=== PATIENT | female | born 1995 | race Caucasian/White ===

== ENCOUNTER 2020-10-23 15:00 | Inpatient (IN) | payer MEDICAID, SELFPAY ==
[2020-10-23] VITALS (32 sets, daily range): BP systolic 117–142; BP diastolic 69–94; PULSE 73–96; RESP 16–18; TEMP 36.1–37.2; O2SAT 99–100; BMI 24.3
[2020-10-23] MEDS: ampicillin 2,000 MG in sodium chloride 0.9% (plus) 50 ML 100 MG IV (16:11)
[2020-10-23] MEDS: dextrose 5%-lactated ringers 1,000 ML 125 ML IV (16:13)
[2020-10-23] MEDS: miSOPROStol 100 mcg tablet 25 MCG SUBLINGUAL ×2 (16:14→20:22)
[2020-10-23 16:43] LABS: Basophils % 0.3 %; Eosinophils # 0.1 10^3/uL (0.0-0.8); Eosinophils % 1.3 %; Hematocrit 33.5 % (37.0-47.0); Hemoglobin 10.8 g/dL (11.5-15.3); Lymphocytes # 1.8 10^3/uL (0.8-4.8); Lymphocytes % 19.8 %; Mean Corpuscular HGB Conc 32.2 g/dL (30.0-36.0); Mean Corpuscular Hemoglobin 30.6 pg (28.0-34.0); Mean Corpuscular Volume 94.9 fl (81-99); Mean Platelet Volume 11.5 fL (7.4-10.4); Monocytes # 0.7 10^3/uL (0.2-0.9); Monocytes % 7.8 %; Neutrophils # 6.28 10^3/uL (1.8-7.7); Nucleated Red Blood Cells % 0 %; Platelet Count 165 10^3/cmm (130-400); Red Blood Count 3.53 10^6/uL (4.1-5.3); Red Cell Distribution Width 13.5 % (12.1-15.1)
--- NOTE | 2020-10-23 17:26 | PC.NURSE ---
HPV detected per labs
[2020-10-23] MEDS: ampicillin 1,000 MG in sodium chloride 0.9% (plus) 50 ML 100 MG IV ×2 (20:11→23:55)
[2020-10-23] MEDS: fentaNYL 50 mcg/mL INJ 2mL IVP (23:39)
[2020-10-23] MEDS: lactated ringers 1,000 ML 999 ML IV (23:55)
[2020-10-24] VITALS (78 sets, daily range): BP systolic 102–148; BP diastolic 61–96; PULSE 67–100; RESP 14–22; TEMP 36.2–36.9; O2SAT 93–100
--- NOTE | 2020-10-24 01:05 | ANES.PREANE2 ---
Pre-Anesthetic Assessment Pre-Anesthetic Assessment: Height/Weight: Height 1.6 m Weight 62.142 kg Temp Pulse Resp BP Pulse Ox 97.0 F L 97 18 144/69 99 10/23/20 21:54 10/24/20 01:00 10/23/20 23:39 10/24/20 00:30 10/24/20 01:00 Preop Diagnosis: labor pain Proposed Procedure: epidural Was Beta Cait taken within 24 hours: N/A Was Clonidine taken within 24 hours: N/A Social: Social History: No alcohol and No tobacco Exam: Pre-Anes Outpt Exam: alert, oriented x 3, clear to auscultation bilaterally and regular rate & rhythm Airway: Submandibular: WNL Cervical ROM: WNL MP: 2 Dentition: Full Pulmonary: Pulmonary: None reported CV/HEM: CV/HEM: None reported : : None reported Hepatic: Hepatic: None reported GI: GI: None reported Metabolic: Metabolic: None reported Musc/skel: Musc/skel: None reported Neuropsych: Neuropsych: None reported Anesthetic Plan: ASA status: 2 Anesthesia: Regional (specify below) Risk of > 500 ml blood loss (7ml/kg in children): No Meds/Allergies Current Medications: Current Medications Generic Name Dose Route Start Last Admin Trade Name Freq PRN Reason Stop Dose Admin Fentanyl 25 - 100 mcg 10/23/20 15:33 10/23/20 23:39 Fentanyl 50 Mcg/ Ml Inj 2ml IVP 25 mcg Q1H PRN Administration SEVERE PAIN Dextrose/Lactated Ringer's 1,000 mls @ 125 m ls/hr 10/23/20 15:45 10/23/20 16:13 Dextrose 5%-Lact ated Ringers IV 125 mls/hr .Q8H ALFONSO Administration Ampicillin Sodium 1,000 mg/ 50 mls @ 100 mls/ hr 10/23/20 19:45 10/23/20 23:55 Sodium Chloride IV 100 mls/hr Q4H ALFONSO Administration Protocol Lactated Ringer's 1,000 mls @ 999 m ls/hr 10/23/20 22:13 10/23/20 23:55 Lactated Ringers IV 999 mls/hr .Q1H1M PRN Administration See label comment s PFSH Anesthesia Female Reproductive History: : 5 Data Anesthesia CBC & Chem 7: 10/23/20 16:02 Other Labs: Laboratory Results - last 48 hr 10/23/20 16:02 WBC 9.0 RBC 3.53 L Hgb 10.8 L Hct 33.5 L MCV 94.9 MCH 30.6 MCHC 32.2 RDW 13.5 Plt Count 165 MPV 11.5 H Neut % (Auto) 70.0 Lymph % (Auto) 19.8 [place] % (Auto) 7.8 Eos % (Auto) 1.3 Baso % (Auto) 0.3 Neut # (Auto) 6.28 Lymph # (Auto) 1.8 [place] # (Auto) 0.7 Eos # (Auto) 0.1 Baso # (Auto) 0.0 Nucleated RBC % (auto) 0 Nucleated RBCs # 0.0 Cardiac Studies: No Data to Display
--- NOTE | 2020-10-24 01:34 | P.ANES_ITS ---
Anesthesia Procedures Procedure/Date: 10/24/20 epidural Procedure Narrative: epidural complete, bolus given, epidural pump initiated with AIRCRAFT ELECTRICAL SYSTEMS SPECIALIST education given, vitals taken during procedure using OBIX system and satisfactory throughout, patient admits to decrease pain, report of procedure to OB RN Epidural: Time Out Performed: Yes Consents Signed: Procedure Consent Consent: requested by attending/covering physician, from patient, risks and benefits reviewed and patient agrees to proceed Lumbar Level: L3-L4 Epidural position: sitting Epidural procedure: sterile prep of area, 1% lidocaine to numb the area (3 mL), 18 g needle, negative for paresthesia passed, neg for paresthesia, test dose given, 1.5% xylocaine 1:200k epi (5 mL), 0.2% Ropivacaine bolus ml (5 mL), placed PCEA, no systemic response, sterile dressing applied, L.U.D. no apparent complications and 0.2% Ropiavacaine @ mls/hr (13 mL/hr)
[2020-10-24] MEDS: ampicillin 1,000 MG in sodium chloride 0.9% (plus) 50 ML 100 MG IV (04:57)
[2020-10-24] MEDS: dextrose 5%-lactated ringers 1,000 ML 125 ML IV (04:58)
--- NOTE | 2020-10-24 07:05 | PM.OPHPUD ---
Labor & Delivery H&P Update Date of Procedure: October 24, 2020 Date H&P Performed: 10/22/20 H&P update information: I have reviewed H&P completed within last 30 days, I have examined patient prior to procedure and Changes to prior documentation as noted here Changes to previous documentation: The patient has grossly ruptured membranes Admission Diagnosis: Preop diagnosis: Spontaneous rupture of membranes
[2020-10-24] MEDS: oxytocin 30 UNIT/500 ML BAG 600 UNIT IV (07:26)
--- NOTE | 2020-10-24 07:35 | P.PCNOB_ITS ---
Delivery Note: Date of delivery: October 24, 2020 Pre-delivery diagnoses: 5 para 2-0-2-2 female at 39 weeks estimated gestational age who presented to the hospital with spontaneous rupture membranes Post-delivery diagnoses: Status post spontaneous vaginal delivery Procedure: Spontaneous vaginal delivery Op report anesthesia: Epidural Estimated blood loss (mL): 30 Pre-Delivery Course: The patient presented to the hospital complaining of spontaneous rupture of membranes. Initially she was noted to be nitrazine negative, but she was found to be grossly ruptured. She was placed on Cytotec 25 mcg x 2 an epidural was placed. She was placed on group B strep protocol due to her GBS positive status and received doses of ampicillin every 4 hours throughout her labor process. She progressed to complete without difficulty. Her membranes ruptured approximately 20 hours prior to delivery Her course was also unremarkable. Her line labs were largely unremarkable with exception of having O+ blood and being GBS positive. Delivery: DELIVERY: The patient progressed to complete without difficulty. She delivered a female with a weight of 6 pounds 14 ounces with Apgars of 9, 10. The baby was delivered from the OP position and placed on the mother's abdomen. The mouth and nose were suctioned shortly thereafter. The cord was then clamped and cut 1 minute after delivery. There was no nuchal cord. There was no meconium. The placenta and 3 vessel cord were delivered intact shortly thereafter. The perineum and vaginal vault were carefully examined. No lacerations were noted. Both the mother and the baby were in stable condition. Post-Delivery Status: Good A&P Assessment and plan (1) 39 weeks gestation of : Status: Acute (2) Spontaneous rupture of membranes: Status: Acute (3) Spontaneous vaginal delivery: Status: Acute Coding Level of Care Code Acute Casino Shift Manager for Chg Fwd Diagnoses 39 weeks gestation of Z3A.39 Spontaneous rupture of membranes Spontaneous vaginal delivery O80
--- NOTE | 2020-10-24 07:47 | PM.OBGYHP ---
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 The patient had an unremarkable and an unremarkable vaginal delivery. Earlier in her , she expressed a desire for permanent sterilization. We discussed the risks of a tubal ligation and the alternatives. We discussed the risks of bleeding, infection, and damage intra-abdominal organs. We also discussed the possibility of getting again after a successful tubal ligation. She had no further questions and wished to proceed. This morning we once again touched on those risks and she and her partner have no further questions. Present Details : 5 Para: 2 Labs Rubella: Immune RPR: Negative GBS: Positive Review of Systems General: Reports: 10 or more systems reviewed and unremarkable except in HPI and below Const: Reports: fatigue; Denies: fever(s) Eyes: Denies: change in vision Card: Denies: chest pain Musc: Reports: back pain Chucky/Lymph: Denies: easy bruising Medications/Allergies Allergies Allergy/AdvReac Type Severity Reaction Status Date / Time No Known Allergies Allergy Verified 10/23/20 16:08 Vitals/I&O/Wt Last Vital Signs Temp 97.5 F L 10/24/20 07:04 Pulse 88 10/24/20 07:32 Resp 18 10/24/20 05:00 BP 127/77 10/24/20 07:32 Pulse Ox 96 10/24/20 01:46 10/23/20 10/24/20 10/24/20 22:59 06:59 14:59 Intake Total 50 / 50 1050 / 1100 Output Total 600 / 600 Balance 50 / 50 1050 / 1100 -600 / -600 Weight last 48 hrs Weight 137 lb Physical Exam Narrative: EXAM NARRATIVE: The fundus of the uterus is firm and below the umbilicus. Const: COMMON NORMALS: patient oriented x3 and alert HENMT: COMMON NORMALS: moist oral mucous membranes HEAD & SCALP: normal to inspection Chest: COMMONS NORMALS: normal inspection of the chest Resp: COMMON NORMALS: clear to auscultation bilaterally AUSCULTATION: clear to auscultation bilaterally Cardio: COMMON NORMALS: regular rate and regular rhythm RATE: regular rate RHYTHM: regular rhythm GI: INSPECTION: Yes normal to inspection and Yes other (Gravid) Extremity: COMMON NORMALS: normal to inspection GENERAL: Yes edema (Trace) Neuro: COMMON NORMALS: patient oriented x3, moves all extremities and no sensory deficits noted SENSORIUM/ORIENTATION: Yes alert Psych: COMMON NORMALS: mental status grossly normal Skin: COMMON NORMALS: no rashes or lesions noted GENERAL SKIN EXAM: no rashes or lesions noted Urinary Catheter Management^: Lewis: Cath Placed During This Visit: yes, but has since been removed by the nurse Reason for Continuing Indwelling Catheter: Decision to DC Catheter Urinary Catheter Date of Insertion: 10/24/20 Urinary Catheter Time of Insertion: 01:40 Date Urinary Catheter Removed: 10/24/20 Time Urinary Catheter Discontinued: 07:00 Data : 10/23/20 16:02 A&P Assessment and plan (1) Spontaneous vaginal delivery: Status: Acute (2) 39 weeks gestation of : Status: Acute (3) Sterilization: We will proceed with a tubal ligation per the request of the patient. We are in the process of scheduling the procedure at this time. Status: Acute Attestations Medical Necessity Statement*: Routine post vaginal delivery and post tubal care. I anticipate she will be discharged home tomorrow Coding Level of Care Code Acute Stencil Cutter Machine for Chg Fwd Diagnoses Spontaneous vaginal delivery O80 39 weeks gestation of Z3A.39 Sterilization Z30.2
--- NOTE | 2020-10-24 08:34 | ANE.PACU2 ---
Inpatient post-anesthesia follow up: Airway intact: Yes Vital signs: Temperature 97.2 F Pulse Rate 67 Respiratory Rate 18 Blood Pressure 130/86 Pulse Oximetry 96 Oxygen Delivery Me thod Room Air Oxygen Flow Rate Fraction of Inspir ed Oxygen Hydration adequate: Yes Nausea and vomiting: No Pain level: 2 Mental status: Baseline
[2020-10-24 21:12] LABS: Hematocrit 35.1 % (37.0-47.0); Hemoglobin 11.5 g/dL (11.5-15.3); Mean Corpuscular HGB Conc 32.8 g/dL (30.0-36.0); Mean Corpuscular Hemoglobin 30.8 pg (28.0-34.0); Mean Corpuscular Volume 94.1 fl (81-99); Mean Platelet Volume 11.8 fL (7.4-10.4); Platelet Count 166 10^3/cmm (130-400); Red Blood Count 3.73 10^6/uL (4.1-5.3); Red Cell Distribution Width 13.2 % (12.1-15.1); White Blood Count 15.2 10^3/uL (4.0-10.0)
[2020-10-25] VITALS (13 sets, daily range): BP systolic 124–178; BP diastolic 78–107; PULSE 50–71; RESP 16–19; TEMP 36.2–36.8; O2SAT 97–100
--- NOTE | 2020-10-25 06:30 | PC.NURSE ---
Pt taken to surgery at this time for tubal
[2020-10-25] MEDS: sodium chloride 0.9% 1,000 ML 30 ML IV (06:45)
--- NOTE | 2020-10-25 06:52 | ANES.PREANE2 ---
Pre-Anesthetic Assessment Pre-Anesthetic Assessment: Height/Weight: Height 1.6 m Weight 62.142 kg Temp Pulse Resp BP Pulse Ox 98.3 F 66 18 127/91 98 10/25/20 06:23 10/25/20 06:23 10/25/20 06:23 10/25/20 06:23 10/25/20 06:23 Preop Diagnosis: female desiring sterilization Proposed Procedure: Operation Date: 10/25/20 07:00 Proposed Procedures p Bilateral Tubal Ligation(Not Applicable) - Abelardo Krause MD Was Beta Cait taken within 24 hours: N/A Was Clonidine taken within 24 hours: N/A Social: Social History: No alcohol and No tobacco Exam: Pre-Anes Outpt Exam: alert, oriented x 3, clear to auscultation bilaterally and regular rate & rhythm Airway: Submandibular: WNL Cervical ROM: WNL MP: 2 Dentition: Full History/ROS: No significant history except as noted Anesthetic Plan: ASA status: 2 Anesthesia: General Risk of > 500 ml blood loss (7ml/kg in children): No Meds/Allergies Current Medications: Current Medications Generic Name Dose Route Start Last Admin Trade Name Freq PRN Reason Stop Dose Admin Docusate Sodium 100 mg 10/24/20 09:00 10/24/20 17:21 Docusate Sodium 100 Mg Capsule PO Not Given BID ALFONSO Sodium Chloride 1,000 mls @ 30 ml s/hr 10/25/20 06:45 10/25/20 06:45 Sodium Chloride 0.9% IV 10/26/20 06:44 30 mls/hr .Q24H ALFONSO Administration Ibuprofen 800 mg 10/24/20 09:00 10/24/20 21:00 Ibuprofen 800 Mg Tablet PO Not Given TID ALFONSO Multivit/ Folic Acid/Iron 1 cap 10/24/20 09:00 10/24/20 16:20 Vitamin Capsule PO Not Given DAILY ALFONSO PFSH Anesthesia Female Reproductive History: : 5 Data Anesthesia CBC & Chem 7: 10/24/20 19:56 Other Labs: Laboratory Results - last 48 hr 10/23/20 10/24/20 16:02 19:56 WBC 9.0 15.2 H RBC 3.53 L 3.73 L Hgb 10.8 L 11.5 Hct 33.5 L 35.1 L MCV 94.9 94.1 MCH 30.6 30.8 MCHC 32.2 32.8 RDW 13.5 13.2 Plt Count 165 166 MPV 11.5 H 11.8 H Neut % (Auto) 70.0 Lymph % (Auto) 19.8 [place] % (Auto) 7.8 Eos % (Auto) 1.3 Baso % (Auto) 0.3 Neut # (Auto) 6.28 Lymph # (Auto) 1.8 [place] # (Auto) 0.7 Eos # (Auto) 0.1 Baso # (Auto) 0.0 Nucleated RBC % (auto) 0 Nucleated RBCs # 0.0 Cardiac Studies: No Data to Display
--- NOTE | 2020-10-25 07:36 | P.OP_ITS ---
Operative Report Date of procedure: October 25, 2020 Pre-op Diagnosis: female desiring sterilization Post-op diagnosis: same Post-op Findings: Same Procedure Done: minilaparotomy bilateral tubal ligation using a modified Jensen technique Specimens removed/disposition: Bilateral fallopian tube segments with the right segment being tagged Pathology: other (Bilateral fallopian tube segments with the right segment being tagged) Surgeon: Abelardo Krause Anesthesia: General Estimated blood loss (mL): 5 Complications: None Condition: stable Disposition: floor (OB floor) Brief History: Refer to history and physical Procedure: The patient was brought back to the operating room where anesthesia was found to be adequate. 10 mL of 0.5% bupivacaine was then used to pre- anesthetize the area just inferior to the umbilicus. A #15 blade was then used to make a 3 cm transverse incision just inferior to the umbilicus. I then dissected down to the underlying subcutaneous tissue until arriving at the fascia. The fascia was then nicked with the scalpel. The fascial incision was extended manually. I identified the fundus of the uterus and followed it to the left fallopian tube. The fallopian tube was then followed to the fimbria. The tube was then ligated, cut, and cauterized in a modified Jensen fashion using 0 chromic. The right fallopian tube was then identified and followed through to the fimbria. It was ligated, cut, and cauterized in similar fashion. The right fallopian tube was tagged. Both fallopian tubes had excellent hemostasis. The fascia was reapproximated using 0 Vicryl in running stitch. The sub cutaneous tissue was carefully examined and no further bleeding was noted. The skin was then reapproximated using 4-0 Vicryl in a running subcuticular stitch. A sterile dressing was placed. All counts were correct x2. The patient was moved to the recovery room in stable condition. Associated Problem List Diagnoses (1) Sterilization: (2) Spontaneous vaginal delivery:
[2020-10-25] MEDS: fentaNYL 50 mcg/mL INJ 2mL IVP (07:50)
[2020-10-25] MEDS: HYDROcodone-acetaminophen 5-325 mg Tablet PO (08:28)
--- NOTE | 2020-10-25 08:41 | PC.NURSE ---
0812 Patient returned from PACU at this time.
[2020-10-25] MEDS: prenatal vitamin Capsule 1 CAP PO (11:10)
[2020-10-25] MEDS: docusate sodium 100 mg Capsule PO (11:10)
[2020-10-25] MEDS: ibuprofen 800 mg tablet PO (11:10)
--- NOTE | 2020-10-25 13:55 | ANE.PACU2 ---
Inpatient post-anesthesia follow up: Airway intact: Yes Vital signs: Temperature 98.2 F Pulse Rate 67 Respiratory Rate 18 Blood Pressure 130/88 Pulse Oximetry 100 Oxygen Delivery Me thod Room Air Oxygen Flow Rate Fraction of Inspir ed Oxygen Hydration adequate: Yes Nausea and vomiting: No Pain level: 2 Mental status: Baseline
--- NOTE | 2020-11-05 06:39 | PM.OBGYDC ---
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 Her labor was augmented with Cytotec 25 mcg x 2. She progressed to complete and had an unremarkable delivery of a healthy-appearing female . The patient desired sterilization. On the subsequent day she had a bilateral tubal ligation performed. Her course was unremarkable otherwise. Her bleeding was well controlled. Her pain was well controlled. There were no concerns. Information Peripartum Data: Infant Delivery Method: Vaginal Physical Exam Narrative: EXAM NARRATIVE: She is in no acute distress Lungs are clear auscultation bilaterally Her heart has a regular rate and rhythm Her fundus is below the umbilicus and firm Her dressing is clean, dry and intact Her extremities have trace edema Urinary Catheter Management^: Lewis: Cath Placed During This Visit: yes, but has since been removed by the nurse Reason for Continuing Indwelling Catheter: Decision to DC Catheter Urinary Catheter Date of Insertion: 10/24/20 Urinary Catheter Time of Insertion: 01:40 Date Urinary Catheter Removed: 10/24/20 Time Urinary Catheter Discontinued: 07:00 Discharge Data Data Completed and Pending: Completed Studies During Hospitalization Category Date Time Status Pathology: Surgic al [PTH] Routine Pth 10/25/20 07:27 Completed Addt'l Data from Hospital Stay: Her hemoglobin on admission was 10.8. Her hemoglobin prior to discharge was 11.5. Vitals: Last Vital Signs Temp 98.2 F 10/25/20 13:00 Pulse 67 10/25/20 13:00 Resp 18 10/25/20 13:00 BP 130/88 10/25/20 13:00 Pulse Ox 100 10/25/20 10:15 Discharge Plan Discharge Patient Disposition: Home Condition: Stable Prescriptions: New ibuprofen 800 mg Tablet 800 mg PO TID Qty: 45 RF: 0 hydrocodone-acetaminophen 5-325 mg Tablet 1 - 2 tab PO Q6H PRN (Reason: Moderate To Severe Pain) Qty: 10 RF: 0 Discharge Orders: Discharge Order (Routine); Ordered 10/25/20 Ordered By: Abelardo Krause Referrals: Abelardo Krause MD [Physician] - 11/02/20 8:45 am (Your 4-7 day incision check appointment has been scheduled for 11/02/20 at 8:45 am. 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
== END 2020-10-25 13:12 | disposition home or self-care (01) | DRG 798 ==
PROVIDERS: Admitting Provider Family Medicine; PCP Family Medicine; Visit Provider Family Medicine
PROC: (CPT 58605; principal; 2020-10-25 07:00)
DX: O42.92 Full-term premature rupture of membranes, unspecified as to length of time between rupture and onset of labor (principal); Z37.0 Single live birth; O99.824 Streptococcus B carrier state complicating childbirth; Z3A.39 39 weeks gestation of pregnancy; Z30.2 Encounter for sterilization
CPT/HCPCS: 12345; 36415; 51702; 59025; 59409; 83986; 85025; 85027; 88302; 99211; J0290; J1100; J2405; J2704; J2710; J2795; J3010; J3490; J7030

== ENCOUNTER → 2023-01-15 10:45 | Outpatient (BNVA) | payer MEDICAID, SELFPAY | PROVIDERS: PCP Family Medicine; Visit Provider Nurse Practitioner | DX: Z12.4 Encounter for screening for malignant neoplasm of cervix (principal); N89.8 Other specified noninflammatory disorders of vagina | CPT/HCPCS: 87070; 87205; 87491; 87591; 88175 ==

== ENCOUNTER 2023-06-08 12:03 | Emergency (ER) | payer MEDICAID, SELFPAY ==
[2023-06-08 12:08] VITALS: BP 150/91; PULSE 100; RESP 18; TEMP 36.8; O2SAT 98; BMI 22.8
--- NOTE | 2023-06-08 12:16 | XR_ITS ---
WS: [id number] XR ankle RT min 3V* [id number] REASON FOR EXAM: trauma/pain FINDINGS: Spiral supra syndesmotic, syndesmotic fracture of the distal right fibula. There is no significant fracture fragment displacement. The joint spaces of the right ankle are intact and relatively well preserved. XR/XR ankle RT min 3V* [id number] IMPRESSION: Right ankle fracture as above.
--- NOTE | 2023-06-08 12:16 | ED_ITS ---
HPI - Extremity Problem General: Chief complaint: Extremity Injury, Lower Stated complaint: R ankle injury Time Seen by Provider: 06/08/23 12:16 History of Present Illness: 27-year-old female presents emergency de partment stating that she was playing with her child when she jumped and landed abnormally on her right foot and ankle causing it to invert. She states that she did this 2 days ago and has had significant swelling and pain to the outside of the right ankle. She states her pain is a 8 out of 10 if she attempts to walk on it. She denies additional numbness or tingling or injury. Review of Systems General: Reports: 10 or more systems reviewed and unremarkable except in HPI and below Musc: Reports: extremity pain and extremity swelling [facility] ED PFSH: Medical History (Updated 06/08/23 @ 13:20 by Victor Manuel Whitney MD) Anxiety with depression Surgical History Hx of dilation and curettage Hx of tubal ligation Family History Father Hypertension Other Cancer Denies family history of Diabetes Stroke Social History Smoking and tobacco/nicotine status: current every day tobacco/nicotine user Second hand smoke exposure: No Alcohol intake: unknown Substance/Drug Use: unknown Adopted: No Caregiver/support person: No Lives independently: Yes Household members: children and friend(s) Housing: House Marital status: Legally Number of children: 3 Highest education level completed: 9th Grade service: No Current occupational status: employed Current occupation: [employer] Physical Exam Narrative: EXAM NARRATIVE: General: Alert, no acute distress. Skin: Warm, dry, Intact. Head: Normocephalic, atraumatic. Neck: Supple, trachea midline. Eye: Extraocular movements are intact. PERRLA Ears, nose, mouth and throat: mucosa moist. Cardiovascular: Regular, Normal peripheral perfusion. Respiratory: Lungs are clear to auscultation, respirations are non-labored, breath sounds are equal, Symmetrical chest wall expansion. Gastrointestinal: Soft, Nontender, Non distended, Normal bowel sounds. Musculoskeletal: Normal ROM, right lateral lower leg tender to palpation, increased pain with inversion or eversion of the right ankle. Tender to palpation. 2+ pulses to all extremities, she moves all extremities well she has sensation in all extremities. Neurological: Alert and oriented, No focal neurological deficit observed. Psychiatric: Cooperative, appropriate mood & affect. Course Vital Signs: Vital signs: Vital Signs Temperature 98.2 F 06/08/23 12:08 Pulse Rate 99 06/08/23 12:24 Respiratory Rate 17 06/08/23 12:24 Blood Pressure 164/112 06/08/23 12:24 Pulse Oximetry 98 06/08/23 12:24 Oxygen Delivery Me thod Room Air 06/08/23 12:24 MDM - Extremity (Nontraumatic) Medical Decision Making Physical exam completed and documented. I did obtain a radiographic examination that did show a distal fibular fracture. I did provide the patient p.o. pain medication as well as splint as documented. I have provided her discharge instructions and written prescription for pain medication and follow-up instructions for orthopedics to have additional evaluation and treatment. I reviewed the radiographic examination and determined the need for fracture stabilization via splint. A right posterior long leg splint was utilized. The splint was ordered and placed by the nursing staff, under the direct supervision of myself (ER Physician. The patient's neurovascular status was evaluated and was intact before and after the application of the splint. Capillary refill was less than 3 seconds before and after the application. The patient was splinted and the most appropriate anatomical and functional position at that time. Anticipatory guidance, return precautions and red flag precautions were provided to the patient and support person. The patient/support person was advised to contact the patient's primary care provider or Orthopedic provider to make a follow-up appointment for additional evaluation and treatment within the next 3-5 days. Medical Records I reviewed the patient's medical records. Lab Data Radiology Impressions Ankle X-Ray 06/08/23 12:16 IMPRESSION: Right ankle fracture as above. All radiology interpretation(s) finalized by discharge Discharge Plan Discharge Patient Disposition: Home Clinical Impression: Ankle fracture Qualifiers: Encounter type: initial encounter Fracture type: closed Laterality: right Qualified Code(s): S82.891A - Other fracture of right lower leg, initial encounter for closed fracture Fracture, fibula Qualifiers: Encounter type: initial encounter Fibula location: distal Fracture type: closed Fracture morphology: unspecified fracture morphology Laterality: right Qualified Code(s): S82.831A - Other fracture of upper and lower end of right fibula, initial encounter for closed fracture Condition: Stable Prescriptions: New hydrocodone-acetaminophen 5-325 mg tablet 1 tab PO Q8H PRN (Reason: pain) Qty: 21 0RF naproxen 500 mg tablet 500 mg PO Q12H PRN (Reason: pain) Qty: 20 0RF Discharge Orders: Discharge ED (Routine); Ordered 06/08/23 Ordered By: Victor Manuel Whitney Referrals: Osman Gaspar DO [Physician] - Lissy Canales MD [Primary Care Provider] - Discharge Diet: Usual diet Discharge Activity: Limit activity as instructed Patient Instructions: Opioid Safety, Pain Management Activity Restrictions/Additional Instructions: Activity Restrictions/Additional Instructions: Thank you for choosing [facility] for your healthcare needs today. Please realize that you were seen in the Emergency Department and that we are providing you with an emergency medical screening exam and this may not be a complete and all inclusive of all the testing and or medical work-up that you may need to determine your ailment or severity of your illness. It is very important that you follow-up as instructed with your Primary care provider or Specialist for additional evaluation and to discuss your medical treatment plan. You may return to the Emergency Department should you have concerns or if your condition changes or worsens in any way. Coding Level of Care Code ED Button Attaching Machine Operator for Lauren Gonzalez
[2023-06-08 12:24] VITALS: BP 164/112; PULSE 99; RESP 17; O2SAT 98
[2023-06-08] MEDS: HYDROcodone-acetaminophen 10-325 mg Tablet 1 TAB PO (12:59)
--- NOTE | 2023-06-08 13:00 | PC.PHAR ---
pt states she takes no prescription or otc medications-pt states not taken lexapro 5mg daily last filled 01/15/23 30d/s or effexor er 37.5mg daily filled 10/06/22 30d/s states not taken for months
== END 2023-06-08 13:46 | disposition home or self-care (01) ==
PROVIDERS: Emergency Provider Internal Medicine; PCP Family Medicine
DX: S82.831A Other fracture of upper and lower end of right fibula, initial encounter for closed fracture (principal); X50.1XXA Overexertion from prolonged static or awkward postures, initial encounter
CPT/HCPCS: 29505; 73610; 99283; E0114

== ENCOUNTER → 2023-06-16 16:01 | Outpatient (BNVA) | payer MEDICAID, SELFPAY | PROVIDERS: PCP Family Medicine; Visit Provider Orthopaedic Surgery | DX: M25.571 Pain in right ankle and joints of right foot | CPT/HCPCS: 73610 ==

== ENCOUNTER 2023-06-19 06:01 | Day surgery (SDC) | payer MEDICAID, SELFPAY ==
[2023-06-19] VITALS (10 sets, daily range): BP systolic 120–191; BP diastolic 75–128; PULSE 70–102; RESP 14–20; TEMP 36.1–36.4; O2SAT 94–100; BMI 23.0
--- NOTE | 2023-06-19 | XR_ITS ---
WS: [id number] INTRAOPERATIVE TECHNIQUE: 2 Spot fluoroscopic images for intraoperative purposes. FLUOROSCOPY TIME: 1 minute 41 seconds DLP: 2.27 mgy/cm CLINICAL INFORMATION: ZINA PICS COMPARISON: None. FINDINGS: Intraoperative changes plate and screw fixation distal fibula shaft and lateral malleolus. XR/XR tibia fibula RT 2V [id number] IMPRESSION: Images obtained for intraoperative purposes.
[2023-06-19] MEDS: acetaminophen 1,000 MG/100 ML PIGGYBACK 400 MG IV (06:30)
[2023-06-19] MEDS: gabapentin 300 mg Capsule PO (06:30)
[2023-06-19] MEDS: sodium chloride 0.9% 1,000 ML 30 ML IV (06:32)
[2023-06-19] MEDS: midazolam 1 mg/mL INJ 2 mL 2 MG IVP (06:45)
--- NOTE | 2023-06-19 06:45 | W.PM.OPSUD ---
Surgery/Procedure H&P Update DATE OF PROCEDURE: June 19, 2023 DATE H&P PERFORMED: 06/16/23 H&P UPDATE INFORMATION: I have reviewed H&P completed within last 30 days, I have examined patient prior to procedure, No changes to prior documentation and H&P is in [facility] EMR on date indicated PREOP DIAGNOSIS: Right bimalleolar equivalent ankle fracture PLANNED PROCEDURE: Operation Date: 06/19/23 07:00 Proposed Procedures p ORIF Ankle ORIF Bimalleolar Fracture/ Right bimalleolar equivalent ankle fracture(Right) - Dav Green DPM
[2023-06-19] MEDS: scopolamine 1.5 Patch 1 PATCH TRANSDERMA (06:57)
[2023-06-19] MEDS: ceFAZolin 2,000 MG in sodium chloride 0.9% (plus) 50 ML 100 MG IV (07:04)
--- NOTE | 2023-06-19 07:04 | ANES.PREANE2 ---
Pre-Anesthetic Assessment Height/Weight: Height 1.6 m Weight 58.967 kg Temp Pulse Resp BP Pulse Ox O2 Del Method 97.4 F L 102 H 18 191/128 94 Room Air 06/19/23 06:59 06/19/23 06:59 06/19/23 06:59 06/19/23 06:59 06/19/23 06:59 06/19/23 06:59 Preop Diagnosis: Right bimalleolar equivalent ankle fracture Operation Date: 06/19/23 07:00 Proposed Procedures p ORIF Ankle ORIF Bimalleolar Fracture/ Right bimalleolar equivalent ankle fracture(Right) - Dav Green DPM Familial anesthetic complications: None Was Beta Cait taken within 24 hours: N/A Was Clonidine taken within 24 hours: N/A Last intake: Intake Last Liquid Date 06/18/23 Last Liquid Time 21:00 Last Solid Date 06/18/23 Last Solid Time 21:00 Social Tobacco and No alcohol Exam alert, oriented x 3, clear to auscultation bilaterally and regular rate & rhythm Airway Mallampati: Class I Dentition: loose (several bottom front teeth loose) Anesthetic Plan ASA status: 1 Anesthesia: General and Regional (specify below) Risk of > 500 ml blood loss (7ml/kg in children): No Medications/Allergies Home Medications Medication Instructions Recorded Confirmed Last Taken Type hydrocodone 5 mg-acetaminophen 325 1 tab PO Q8H PRN pain #21 tabs 06/08/23 06/19/23 06/18/23 Rx mg tablet naproxen 500 mg tablet 500 mg PO Q12H PRN pain #20 tabs 06/08/23 06/19/23 Unknown Rx hydrocodone 5 mg-acetaminophen 325 1 tab PO Q6H PRN pain 7 days #28 06/19/23 Unknown Rx mg tablet tabs Allergies Allergy/AdvReac Type Severity Reaction Status Date / Time No Known Allergies Allergy Verified 06/16/23 15:55 Current Medications Generic Name Dose Route Start Last Admin Trade Name Freq PRN Reason Stop Dose Admin Sodium Chloride 1,000 mls @ 30 mls/hr 06/19/23 06:30 06/19/23 06:32 Sodium Chloride 0.9% IV 30 mls/hr .Q24H ALFONSO Administration Midazolam HCl 2 mg 06/19/23 06:37 06/19/23 06:45 Midazolam 1 Mg/Ml Inj 2 Ml IVP 2 mg Q5M PRN Administration Preop Anxiety PFSH Anesthesia Medical History Anxiety with depression Surgical History Hx of dilation and curettage Hx of tubal ligation Family History Father Hypertension Other Cancer Denies family history of Diabetes Stroke Social History Smoking and tobacco/nicotine status: current every day tobacco/nicotine user Second hand smoke exposure: No Alcohol intake: unknown Substance/Drug Use: unknown Adopted: No Caregiver/support person: No Lives independently: Yes Household members: children and friend(s) Housing: House Marital status: Legally Number of children: 3 Highest education level completed: 9th Grade service: No Current occupational status: employed 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
--- NOTE | 2023-06-19 07:06 | ANES.PROC ---
Anesthesia Procedures Procedure/Date: 06/19/23 Nerve Block ^: Nerve Block 1: Main Anesthesia: general anesthesia Time Out Performed: Yes Consent: requested by attending/covering physician, from patient, from other, risks and benefits reviewed and patient agrees to proceed Nerve block location: popliteal (R) Anesthesia monitors applied: pulse oximetry, EKG, BP cuff and oxygen Nerve block position: supine Anesthetic Used: ropivicaine 0.5% (30 ml) and with decadron (4 mg) Ultrasound used to: recognize landmarks Nerve Stimulator Used?: No Interscalene/Femoral BLK: 4 stimuplex 21 g needle used for position and inplane approach, visualize local anesthetic spread and no vascular puncture identified Injection: neg aspiration of heme Patient Tolerated Procedure: well and no complications Complications: none
[2023-06-19 08:22] LABS: OR HCG Qualitative Urine Negative (Negative)
--- NOTE | 2023-06-19 08:29 | P.BOP_ITS ---
Date of procedure: 06/19/2023 Surgeon name: Shine GiraldoPMikey Assistant Track Coach(s) name(s): DOUGIE Gallegos Procedure(s) performed: Open reduction internal fixation right distal fibular fracture Description of findings: Romo B fibula fracture Estimated blood loss: 3 cc Tourniquet time: 60 minutes Specimen(s) removed: None Post-operative diagnosis: Right ankle distal fibular fracture
--- NOTE | 2023-06-19 08:30 | P.OP_ITS ---
Operative Report Date of procedure: June 19, 2023 Pre-op diagnosis: Right distal fibular fracture wilton equivalent Post-op diagnosis: Right distal fibular fracture Post-op findings: Romo B fibular fracture. Stable syndesmosis Procedure done: Open reduction internal fixation right distal fibular fracture CPT 95702 Implants: Anatomic fibular plate with 3.5 locking and nonlocking screws as well as 3.5 and a frag screw all from [employer] medical Surgeon: Dav Green DPM Outside Sales Consultant: DOUGIE Courtney Estimated blood loss: 3 cc 60 minutes Complications: None Findings: See above Procedure: Patient is a 27-year-old female that has a history of right distal fibular fracture. The extent of the fracture necessitates open reduction internal fixation to prevent long-term sequela. A lengthy discussion regarding the procedure, including risks and complications has been had with the patient and is noted in the recent clinic note. Written and verbal consent have been obtained. All patient questions have been answered to the patient?s satisfaction. No written or verbal guarantees have been given or implied. The patient has been NPO since midnight. The history has been reviewed and the history and physical is current. The signed consent was confirmed and placed in the patient chart. Patient imaging has been reviewed and is consistent with the diagnosis. Under mild sedation, the patient was brought into the operating room and placed on the table in the supine position. IV antibiotics were given by the anesthesia team as preoperative surgical prophylaxis. General sedation was then performed by the anesthesiateam. A popliteal block was performed by the anesthesia department. A pneumatic tourniquet was then placed about the right thigh. The operative extremity was then prepped and draped in the usual fashion. The extremity was then elevated and exsanguinated before the tourniquet was inflated to 325 mmHg. After inflation, the following procedure was then perf ormed. Attention was directed to the lateral aspect of the right ankle where a 7 cm incision was made using a #15 blade. Dissection was carried down through subcutaneous the superficial fascia to the level of the fibula. Periosteum was incised at the level of the fracture site and reflected to expose the entirety of the fracture. Combination of rongeur and dental pick was used to remove the hematoma the fracture site. After removal of the hematoma the fibula was anatomically reduced. It was temporally fixated with guidewire. Good positioning of the fibula was noted on C-arm imaging as well as clinically. It was noted to be out to length. A 3.5 interfrag screw from [employer] was then placed across the fracture site in standard interfrag fashion. Next an anatomic fibular plate was positioned to the lateral aspect of the fibula. Distal holes were drilled and filled per the manufacture protocol and the proximal holes were then filled in the similar fashion with combination of locking and nonlocking screws. Good positioning of the plate and screws was noted clinically as well as on C-arm imaging. The syndesmosis was then stressed under live fluoroscopy and was noted to be intact. The site was then irrigated with copious amounts of sterile saline before attention was directed to closure. Deep tissue was closed with 3-0 Vicryl followed by subcuticular closure with 4-0 Vicryl and skin closure with 4-0 nylon in horizontal mattress fashion. Tourniquet was let down and good hyperemic response noted to all digits of the right foot. The incision site was dressed with Xeroform, 4 x 4 gauze, Kerlix, Braden. Patient was placed in a cam boot. The patient tolerated the procedure and anesthesia well and without complication. The patient was transported from the operating room to the recovery room with vital signs stable and vascular status intact to all digits of the right foot. The patient was given both written and verbal instructions to remain nonweightbearing to the operative extremity, to keep dressings/splint clean, dry and intact and to take pain medication as directed. The patient will follow-up in the outpatient setting at their scheduled appointment. The patient was discharged with my personal number and was instructed to call if any questions or issues should arise. They were discharged home once anesthesia criteria was met.
--- NOTE | 2023-06-19 09:45 | ANE.PACU2 ---
Inpatient post-anesthesia follow up: Airway intact: Yes Vital signs: Temperature 97.6 F Pulse Rate 80 Respiratory Rate 17 Blood Pressure 130/96 Pulse Oximetry 99 Oxygen Delivery Me thod Room Air Oxygen Flow Rate Fraction of Inspir ed Oxygen Hydration adequate: Yes Nausea and vomiting: No Pain level: 1 Mental status: Baseline
== END 2023-06-19 09:45 | disposition home or self-care (01) ==
PROVIDERS: Anesthesiology; PCP Family Medicine; Visit Provider Podiatrist Foot & Ankle Surgery
PROC: (CPT 27792; principal; 2023-06-19 07:00)
DX: S82.831A Other fracture of upper and lower end of right fibula, initial encounter for closed fracture (principal)
CPT/HCPCS: 27792; 73590; 76000; 81025; C1713; J0131; J0690; J1100; J1885; J2250; J2371; J2405; J2704; J2795; J3010; J7030

== ENCOUNTER 2023-06-29 22:30 | Emergency (ER) | payer MEDICAID, SELFPAY ==
[2023-06-29 22:46] VITALS: PULSE 104; RESP 18; TEMP 37.5; O2SAT 98; BMI 23.0
[2023-06-29] MEDS: amoxicillin-clav 875-125 mg Tablet 1 TAB PO (23:31)
[2023-06-29] MEDS: tetanus-dipt-pertussis 0.5 mL SDV IM (23:32)
--- NOTE | 2023-06-29 23:32 | W.ED.ANIMALB ---
Documented by User: EDITH Cavazos 06/29/23 23:35 HPI - Animal Bite General: Chief Complaint: Animal Bite Stated Complaint: Dog Bite Time Seen by Provider: 06/29/23 23:13 Source: patient Mode of arrival: ambulatory Limitations: no limitations History of Present Illness: Patient is a 27-year-old female who presents to the emergency department complaining of dog bite to her right lateral thigh onset 2 days. Patient notes the dog is her mother's dog and is able to be quarantined. She states her tetanus is not up-to-date. She notes that there has been spreading redness and increasing pain and swelling to the area. She denies any fever, drainage from the lesion, or other systemic signs of illness. Has not taken anything for her pain. complaint: animal bite Onset (ago): day(s) Animal: dog Description of animal: household pet Mechanism: bite Location - Extremities: Right: thigh Associated symptoms: Deny chills, fever(s) or headache(s) Review of Systems General: Reports: 10 or more systems reviewed and unremarkable except in HPI and below Const: Denies: fever(s), chills or fatigue Eyes: Denies: change in vision ENMT: Denies: throat pain, ear or mastoid pain or nasal discharge Card: Denies: chest pain, palpitations, swelling of feet/ankles or lightheadedness Resp: Denies: dyspnea, productive cough or wheezing GI: Denies: abdominal pain, nausea, vomiting, diarrhea or constipation : Denies: flank pain, difficulty voiding, dysuria or urinary frequency Musc: Reports: extremity pain and extremity swelling; Denies: neck pain, back pain or joint pain Skin/Breast: Reports: other (Dog bite); Denies: rash Neuro: Denies: headache(s), numbness in extremities or weakness in extremities PFSH ED PFSH: Medical History Anxiety with depression Surgical History Hx of dilation and curettage Hx of tubal ligation Family History Father Hypertension Other Cancer Denies family history of Diabetes Stroke Social History Smoking and tobacco/nicotine status: current every day tobacco/nicotine user Second hand smoke exposure: No Alcohol intake: unknown Substance/Drug Use: unknown Adopted: No Caregiver/support person: No Lives independently: Yes Household members: children and friend(s) Housing: House Marital status: Legally Number of children: 3 Highest education level completed: 9th Grade service: No Current occupational status: employed Current occupation: [employer] Female Reproductive History: Date of last menstrual period: 06/01/23 Physical Exam Const: COMMON NORMALS: no acute distress, patient oriented x3 and no limitations GENERAL APPEARANCE: cooperative, comfortable and well developed ORIENTATION/CONSCIOUSNESS: Yes awake, Yes oriented to person, Yes oriented to place and Yes oriented to time HENMT: COMMON NORMALS: normocephalic, atraumatic and hearing grossly normal bilaterally HEAD & SCALP: normocephalic and atraumatic Eye: COMMON NORMALS: Equal, round and reactive pupils present, EOMs intact bilaterally and conjunctivae normal CONJUNCTIVA: Yes conjunctivae normal PUPIL: Yes Equal, round and reactive pupils present Neck/C-Spine: COMMON NORMALS: full ROM, supple and no JVD Resp: COMMON NORMALS: normal respiratory effort, No retractions, No use of accessory muscles and clear to auscultation bilaterally AUSCULTATION: clear to auscultation bilaterally Cardio: COMMON NORMALS: no JVD, regular rate, regular rhythm, No clicks present (Cardio), No murmurs present (Cardio) and No rub (Cardio) RATE: regular rate RHYTHM: regular rhythm Extremity: NARRATIVE EXTREMITY EXAM: Large dog bite noted to the right lateral thigh, no active bleeding or drainage. There is a mild to moderate amount of surrounding erythema, though no palpable fluctuance to the area. Area is tender to the touch. No red streaking noted. Neuro: COMMON NORMALS: patient oriented x3, moves all extremities, no focal motor deficits and no sensory deficits noted SENSORIUM/ORIENTATION: Yes oriented to person, Yes oriented to place and Yes oriented to time Psych: COMMON NORMALS: mental status grossly normal and Normal thought process present THOUGHT PROCESS: Normal thought process present Skin: COMMON NORMALS: no rashes or lesions noted GENERAL SKIN EXAM: no rashes or lesions noted Course Vital Signs: Vital signs: Vital Signs Temperature 99.5 F 06/29/23 22:46 Pulse Rate 104 H 06/29/23 22:46 Respiratory Rate 18 06/29/23 22:46 Pulse Oximetry 98 06/29/23 22:46 Oxygen Delivery Me thod Room Air 06/29/23 22:46 MDM - Animal Bite Medical Decision Making Patient presents for dog bite to right lateral thigh. This occurred 3 days ago she states pain and swelling have only worsened. Dog is able to be quarantined and has been a family dog for many years. Tetanus is not up-to-date, is updated today. Will start her on Augmentin, will give a dose tonight and send rest to pharmacy. Patient is to ice the area and alternate Tylenol and ibuprofen, as she has not been using anything for pain to this point. She is informed of specific signs to watch for such as worsening of redness, pain, or purulent drainage, and she is told to return to the ED for evaluation. Otherwise she will follow-up with primary care and return if dog shows any signs of rabies. No radiology studies performed this visit Discharge Plan Discharge Patient Disposition: Home Clinical Impression: Dog bite Condition: Stable Prescriptions: No Action (DME) ASO Chip See Rx Instructions .Route .MEDSUPPLY Qty: 1 0RF Rx Instructions: As directed naproxen 500 mg tablet 500 mg PO Q12H PRN (Reason: pain) Qty: 20 0RF doxycycline hyclate 100 mg capsule 100 mg PO BID 7 Days Qty: 14 0RF benzonatate 200 mg capsule 200 mg PO TID PRN (Reason: cough) Qty: 30 0RF dexamethasone 6 mg tablet 6 mg PO DAILY 5 Days Qty: 5 0RF Discharge Orders: Discharge ED (Routine); Ordered 06/29/23 Ordered By: Dav Hansen Referrals: Lissy Canales MD [Primary Care Provider] - Discharge Diet: Usual diet Discharge Activity: Increase activity as tolerated Patient Instructions: Animal Bite (ED) Activity Restrictions/Additional Instructions: Augmentin as prescribed. Your tetanus was updated today. Keep monitoring animal for any concerning signs of rabies and return immediately to the emergency department for vaccination series. Follow-up with primary care as needed. Also monitor for any worsening signs of infection to the area. Coding Level of Care Code ED Case Management Associate for [employer] Documented by User: Les Saleem DO 07/12/23 15:37 HPI - Animal Bite General: Chief Complaint: Animal Bite Stated Complaint: Dog Bite Time Seen by Provider: 06/29/23 23:13 PFSH ED PFSH: Medical History Anxiety with depression Surgical History Hx of dilation and curettage Hx of tubal ligation Family History Father Hypertension Other Cancer Denies family history of Diabetes Stroke Social History Smoking and tobacco/nicotine status: current every day tobacco/nicotine user Second hand smoke exposure: No Alcohol intake: unknown Substance/Drug Use: unknown Adopted: No Caregiver/support person: No Lives independently: Yes Household members: children and friend(s) Housing: House Marital status: Legally Number of children: 3 Highest education level completed: 9th Grade service: No Current occupational status: employed Current occupation: [employer] Vital Signs: Vital signs: Vital Signs Temperature 99.5 F 06/29/23 22:46 Pulse Rate 104 H 06/29/23 22:46 Respiratory Rate 18 06/29/23 22:46 Pulse Oximetry 98 06/29/23 22:46 Oxygen Delivery Me thod Room Air 06/29/23 22:46 MDM - Animal Bite Medical Decision Making Patient presents for dog bite to right lateral thigh. This occurred 3 days ago she states pain and swelling have only worsened. Dog is able to be quarantined and has been a family dog for many years. Tetanus is not up-to-date, is updated today. Will start her on Augmentin, will give a dose tonight and send rest to pharmacy. Patient is to ice the area and alternate Tylenol and ibuprofen, as she has not been using anything for pain to this point. She is informed of specific signs to watch for such as worsening of redness, pain, or purulent drainage, and she is told to return to the ED for evaluation. Otherwise she will follow-up with primary care and return if dog shows any signs of rabies. Chart reviewed Discharge Plan Discharge Patient Disposition: Home Clinical Impression: Dog bite Condition: Stable Prescriptions: No Action (DME) ASO Brace See Rx Instructions .Route .MEDSUPPLY Qty: 1 0RF Rx Instructions: As directed naproxen 500 mg tablet 500 mg PO Q12H PRN (Reason: pain) Qty: 20 0RF doxycycline hyclate 100 mg capsule 100 mg PO BID 7 Days Qty: 14 0RF benzonatate 200 mg capsule 200 mg PO TID PRN (Reason: cough) Qty: 30 0RF dexamethasone 6 mg tablet 6 mg PO DAILY 5 Days Qty: 5 0RF Discharge Orders: Discharge ED (Routine); Ordered 06/29/23 Ordered By: Dav Hansen Referrals: Lissy Canales MD [Primary Care Provider] - Discharge Diet: Usual diet Discharge Activity: Increase activity as tolerated Patient Instructions: Animal Bite (ED) Activity Restrictions/Additional Instructions: Augmentin as prescribed. Your tetanus was updated today. Keep monitoring animal for any concerning signs of rabies and return immediately to the emergency department for vaccination series. Follow-up with primary care as needed. Also monitor for any worsening signs of infection to the area. Coding Level of Care Code ED Case Management Associate for Lauren Gonzalez
== END 2023-06-29 23:40 | disposition home or self-care (01) ==
PROVIDERS: Emergency Provider Physician Assistant; PCP Family Medicine
DX: S71.151A Open bite, right thigh, initial encounter (principal); W54.0XXA Bitten by dog, initial encounter; Z72.0 Tobacco use; Z23 Encounter for immunization
CPT/HCPCS: 90471; 90715; 99283

== ENCOUNTER 2023-07-03 06:00 | Outpatient (RCR) | payer MEDICAID, SELFPAY | END 2023-07-10 23:59 | disposition home or self-care (01) | LOC: SPT 06:00 | PROVIDERS: Visit Provider Podiatrist Foot & Ankle Surgery | DX: Z98.890 Other specified postprocedural states (principal) | CPT/HCPCS: L1902 ==

== ENCOUNTER → 2023-07-03 08:52 | Outpatient (BNVA) | payer MEDICAID, SELFPAY | PROVIDERS: PCP Family Medicine; Visit Provider Podiatrist Foot & Ankle Surgery | DX: Z98.890 Other specified postprocedural states | CPT/HCPCS: 73610 ==

== ENCOUNTER 2023-07-09 21:48 | Emergency (ER) | payer MEDICAID, SELFPAY ==
[2023-07-09 21:53] VITALS: BP 160/115; PULSE 112; RESP 18; TEMP 37; O2SAT 93; BMI 23.0
--- NOTE | 2023-07-09 22:01 | XRR_ITS ---
PROCEDURE INFORMATION: Exam: XR Chest Exam date and time: 07/09/2023 10:20 PM Age: 27 years old Clinical indication: Cough and fever and shortness of breath; Additional info: Fever, cough TECHNIQUE: Imaging protocol: Radiologic exam of the chest. Views: 1 view. COMPARISON: No relevant prior studies available. FINDINGS: Lungs: Unremarkable. No consolidation. Pleural spaces: Unremarkable. No pleural effusion. No pneumothorax. Heart/Mediastinum: Unremarkable. No cardiomegaly. Bones/joints: Unremarkable. XR/XR chest 1V portable [id number] IMPRESSION: No acute findings.
--- NOTE | 2023-07-09 22:03 | W.ED.URI ---
HPI - URI/Sore Throat General: Chief Complaint: Upper Respiratory Infection Stated Complaint: Resp? Time Seen by Provider: 07/09/23 21:49 History of Present Illness: Healthy 27-year-old female who presents emergency room with cough and shortness of breath. She says this been going on for about a week now. And gotten so bad that she called for an ambulance. She has had fever. Some burning chest pain. No altered mental status. No nausea or vomiting. No diarrhea. Review of Systems Narrative: Constitutional symptoms: Negative except as documented in HPI. Skin symptoms: Negative except as documented in HPI. Eye symptoms: Negative except as documented in HPI. ENMT symptoms: Negative except as documented in HPI. Respiratory symptoms: Negative except as documented in HPI. Cardiovascular symptoms: Negative except as documented in HPI. Gastrointestinal symptoms: Negative except as documented in HPI. Genitourinary symptoms: Negative except as documented in HPI. Musculoskeletal symptoms: Negative except as documented in HPI. Neurologic symptoms: Negative except as documented in HPI. Psychiatric symptoms: Negative except as documented in HPI. Endocrine symptoms: Negative except as documented in HPI. [facility] ED PFSH: Medical History Anxiety with depression Surgical History Hx of dilation and curettage Hx of tubal ligation Family History Father Hypertension Other Cancer Denies family history of Diabetes Stroke Social History Smoking and tobacco/nicotine status: current every day tobacco/nicotine user Second hand smoke exposure: No Alcohol intake: unknown Substance/Drug Use: unknown Adopted: No Caregiver/support person: No Lives independently: Yes Household members: children and friend(s) Housing: House Marital status: Legally Number of children: 3 Highest education level completed: 9th Grade service: No Current occupational status: employed Current occupation: [employer] Physical Exam Narrative: EXAM NARRATIVE: General: Alert, no acute distress. Skin: Warm, dry. Head: Normocephalic, atraumatic. Neck: Supple, trachea midline. Eye: Extraocular movements are intact. Ears, nose, mouth and throat: mucosa moist. Cardiovascular: Regular, tachycardic, normal peripheral perfusion. Respiratory: Some mild scattered wheeze, respirations are non-labored, breath sounds are equal, Symmetrical chest wall expansion. Gastrointestinal: Soft, Nontender, Non distended, Normal bowel sounds. Musculoskeletal: Normal ROM, no deformity. Neurological: Alert and oriented, No focal neurological deficit observed. Psychiatric: Cooperative, appropriate mood & affect. Course Vital Signs: Vital signs: Vital Signs Temperature 98.2 F 07/09/23 23:13 Pulse Rate 116 H 07/09/23 23:13 Respiratory Rate 18 07/09/23 22:47 Blood Pressure 144/88 07/09/23 23:13 Pulse Oximetry 96 07/09/23 23:13 Oxygen Delivery Me thod Room Air 07/09/23 23:13 MDM - URI/Sore Throat Medical Decision Making Chest x-ray: No acute process. No infiltrate. No pneumothorax. No cardiomegaly. This was reviewed and interpreted by myself the ER physician. Reexamination: Patient remained stable. No longer with any wheeze at all. No increased work of breathing. She says she still does not feel well. She remains slightly tachycardic. Assessment and plan: Bronchitis Tobacco dependence ?IV doxycycline, IV Solu-Medrol and p.o. codeine in the emergency room - Discharged home - Discussed plan with patient. Answered any questions. - Evaluation and treatment of this problem were appropriate in the emergency setting. I spent 3-4 minutes talking to the patient about tobacco cessation. We discussed the risk associated with tobacco use and the importance of stopping tobacco use. The patient seems receptive to the information. Lab Data Radiology Impressions Chest X-Ray 07/09/23 22:01 IMPRESSION: No acute findings. All radiology interpretation(s) finalized by discharge Discharge Plan Discharge Patient Disposition: Home Clinical Impression: Bronchitis, Tobacco dependence Condition: Stable Prescriptions: New doxycycline hyclate 100 mg capsule 100 mg PO BID 7 Days Qty: 14 0RF benzonatate 200 mg capsule 200 mg PO TID PRN (Reason: cough) Qty: 30 0RF dexamethasone 6 mg tablet 6 mg PO DAILY 5 Days Qty: 5 0RF No Action (DME) ASO Brace See Rx Instructions .Route .MEDSUPPLY Qty: 1 0RF Rx Instructions: As directed naproxen 500 mg tablet 500 mg PO Q12H PRN (Reason: pain) Qty: 20 0RF Discharge Orders: Discharge ED (Routine); Ordered 07/09/23 Ordered By: Radha Hart Discharge Diet: Advance as tolerated Discharge Activity: Increase activity as tolerated Patient Instructions: How to Stop Smoking (ED), Acute Bronchitis (ED) Activity Restrictions/Additional Instructions: Thank you for choosing [facility] for your healthcare needs today. Please realize this is an emergency room and that we are providing you with a medical screening exam and this may not be complete and all inclusive of all the testing and or work up that you may need to determine your ailment or severity of your illness. You have been screened and evaluated and felt safe for discharge. Health conditions do change or evolve sometimes and as such it is important that you follow up with your Primary Doctor to be re checked, 3-5 days is a general good time frame for follow up. You are always welcome to return to the ED for re assessment if your symptoms are worsening or you have new concerns Coding Level of Care Code ED [employer] Representative for Lauren Gonzalez
[2023-07-09] MEDS: doxycycline 100 MG in sodium chloride 0.9% (plus) 100 ML IV (22:12)
[2023-07-09] MEDS: methylPREDNISolone sod succ 125 mg/2 mL INJ IVP (22:12)
[2023-07-09] MEDS: guaiFENesin-codeine UDC 10 mL PO (22:12)
[2023-07-09 22:43] VITALS: PULSE 105; RESP 18; O2SAT 96
[2023-07-09] MEDS: ipratropium-albuterol 3 mL Neb INHALATION (22:44)
[2023-07-09 22:47] VITALS: PULSE 105; RESP 18; O2SAT 96
[2023-07-09 23:13] VITALS: BP 144/88; PULSE 116; TEMP 36.8; O2SAT 96
[2023-07-10 00:07] LABS: Adenovirus Not Detected (NOT DETECT); Chlamydia Pneumoniae Not Detected (NOT DETECT); Coronavirus 229E,HKU1,NL63,OC4 Not Detected (NOT DETECT); Human Metapneumovirus Not Detected (NOT DETECT); Human Rhinovirus/Enterovirus Not Detected (NOT DETECT); Influenza A Not Detected (NOT DETECT); Influenza A H1 Not Detected (NOT DETECT); Influenza A H1-2009 Not Detected (NOT DETECT); Influenza A H3 Not Detected (NOT DETECT); Influenza B Not Detected (NOT DETECT); Mycoplasma Pneumoniae Not Detected (NOT DETECT); Parainfluenza Virus Type 1 Not Detected (NOT DETECT); Parainfluenza Virus Type 2 Not Detected (NOT DETECT); Parainfluenza Virus Type 3 Detected (NOT DETECT); Parainfluenza Virus Type 4 Not Detected (NOT DETECT); Respiratory Syncytial Virus A Not Detected (NOT DETECT); Respiratory Syncytial Virus B Not Detected (NOT DETECT); SARS-COV-2 Not Detected (NOT DETECT)
== END 2023-07-09 23:41 | disposition home or self-care (01) ==
PROVIDERS: Emergency Provider Emergency Medicine
DX: J40 Bronchitis, not specified as acute or chronic (principal); Z72.0 Tobacco use
CPT/HCPCS: 71045; 87486; 87581; 87633; 94640; 96374; 96375; 99284; J2919; J3490

== ENCOUNTER 2023-12-28 16:50 | Emergency (ER) | payer MEDICAID, SELFPAY ==
[2023-12-28 16:53] VITALS: BP 145/107; PULSE 101; RESP 18; TEMP 36.7; O2SAT 97; BMI 23.7
--- NOTE | 2023-12-28 17:00 | XRR_ITS ---
PROCEDURE INFORMATION: Exam: XR Left Ankle Exam date and time: 12/28/2023 5:14 PM Age: 28 years old Clinical indication: Injury or trauma; Fall; Blunt trauma; Ankle; Left; Additional info: Pain/injuy x1 week TECHNIQUE: Imaging protocol: Radiologic exam of the left ankle. Views: 3 or more views. COMPARISON: CR XR foot LT min 3V* [id number] 12/28/2023 5:14 PM FINDINGS: Bones/joints: Normal mineralization and alignment. No evidence of acute fracture or dislocation. Soft tissues: The soft tissues are within normal limits. XR/XR ankle LT min 3V* [id number] IMPRESSION: No evidence of acute fracture or dislocation.
--- NOTE | 2023-12-28 17:13 | XRR_ITS ---
PROCEDURE INFORMATION: Exam: XR Left Foot Exam date and time: 12/28/2023 5:14 PM Age: 28 years old Clinical indication: Injury or trauma; Fall; Blunt trauma; Foot; Left; Additional info: Pain/injury x1 week TECHNIQUE: Imaging protocol: Radiologic exam of the left foot. Views: 3 or more views. COMPARISON: CR XR ankle LT min 3V* [id number] 12/28/2023 5:14 PM FINDINGS: Bones/joints: Mild hallux valgus. Otherwise normal mineralization and alignment. No evidence of acute fracture or dislocation. Soft tissues: The soft tissues are within normal limits. XR/XR foot LT min 3V* [id number] IMPRESSION: No evidence of acute fracture or dislocation.
--- NOTE | 2023-12-28 17:14 | W.ED.EXTPRO ---
HPI - Extremity Problem General: Chief complaint: Extremity Injury, Lower Stated complaint: left ankle injury Time Seen by Provider: 12/28/23 16:59 Source: patient Mode of arrival: ambulatory Limitations: no limitations History of Present Illness: Patient is a 28-year-old female who presents the emergency department complaining of left foot and ankle pain for the past week. States she had an injury while running last week, this was an inversion ankle injury and she has not treated it with any conservative therapy since. States she has a history of fracture and surgery to her right ankle, this feels similar and she is concerned she may have fractured her left foot as well. She states she is anxious due to the pain and thinking it is fractured, and it has caused her blood pressure to be higher than normal. No neurovascular symptoms reported, primary concern is the pain and swelling to the left lateral ankle and foot. MD Complaint: extremity pain, extremity swelling, joint swelling and joint pain Onset (ago): week(s) (1) Pain Consistency: constant Location: left and lower extremity Radiation: proximal Exacerbating factors: weight bearing and walking Associated symptoms: Deny chest pain, fever(s) or rash Related Data Previous Rx's Medication Instructions Recorded naproxen 500 mg tablet 500 mg PO Q12H PRN pain #20 tabs 06/08/23 ASO Brace #1 ea 07/03/23 benzonatate 200 mg capsule 200 mg PO TID PRN cough #30 caps 07/09/23 Allergies Allergy/AdvReac Type Severity Reaction Status Date / Time No Known Allergies Allergy Verified 12/28/23 17:42 Review of Systems General: Reports: 10 or more systems reviewed and unremarkable except in HPI and below Const: Denies: fever(s) or chills Card: Denies: chest pain Resp: Denies: dyspnea or productive cough GI: Denies: abdominal pain, nausea, vomiting or diarrhea : Denies: flank pain Musc: Reports: extremity pain, extremity swelling, joint pain and joint swelling; Denies: neck pain, back pain, joint redness, joint warmth, limited range of motion or muscle weakness Skin/Breast: Denies: rash Neuro: Denies: headache(s), numbness in extremities or weakness in extremities PFS ED PFSH: Medical History Anxiety with depression Surgical History Hx of dilation and curettage Hx of tubal ligation Family History Father Hypertension Other Cancer Denies family history of Diabetes Stroke Social History Smoking and tobacco/nicotine status: current every day tobacco/nicotine user Second hand smoke exposure: No Alcohol intake: unknown Substance/Drug Use: unknown Adopted: No Caregiver/support person: No Lives independently: Yes Household members: children and friend(s) Housing: House Marital status: Legally Number of children: 3 Highest education level completed: 9th Grade service: No Current occupational status: employed Current occupation: [employer] Physical Exam Const: COMMON NORMALS: no acute distress, patient oriented x3, no limitations, healthy appearing, alert and well nourished HENMT: COMMON NORMALS: normocephalic and atraumatic HEAD & SCALP: normocephalic and atraumatic Neck/C-Spine: COMMON NORMALS: full ROM, supple and no meningeal signs Resp: COMMON NORMALS: normal respiratory effort, No use of accessory muscles and clear to auscultation bilaterally AUSCULTATION: clear to auscultation bilaterally Cardio: COMMON NORMALS: regular rate and regular rhythm RATE: regular rate RHYTHM: regular rhythm Extremity: NARRATIVE EXTREMITY EXAM: Swelling to the left lateral ankle, there is also bruising to the plantar aspect of the left lateral foot. Tenderness to palpation to the left lateral foot and ankle. 2+ dorsalis pedis and posterior tibial pulse. No distal neurovascular deficits. Neuro: COMMON NORMALS: patient oriented x3, moves all extremities, no focal motor deficits and no sensory deficits noted SENSORIUM/ORIENTATION: Yes alert MENINGEAL SIGNS: Yes no meningeal signs Skin: COMMON NORMALS: no rashes or lesions noted GENERAL SKIN EXAM: no rashes or lesions noted Course Vital Signs: Vital signs: Vital Signs Temperature 98.1 F 12/28/23 16:53 Pulse Rate 101 H 12/28/23 16:53 Respiratory Rate 18 12/28/23 16:53 Blood Pressure 145/107 12/28/23 16:53 Pulse Oximetry 97 12/28/23 16:53 Oxygen Delivery Me thod Room Air 12/28/23 16:53 MDM - Extremity (Nontraumatic) Medical Decision Making Patient reported inverted ankle injury a week ago, has not done any sort of conservative therapy or taking any medications. X-rays obtained here not showing any evidence of fracture or dislocation. Will begin with RICE therapy for probable ankle sprain, however she is instructed to follow-up with primary care if she continues to get worse. No concerning physical exam findings that would warrant emergent CT or MRI. Return precautions were given however Lab Data Radiology Impressions Ankle X-Ray 12/28/23 17:00 IMPRESSION: No evidence of acute fracture or dislocation. Foot X-Ray 12/28/23 17:13 IMPRESSION: No evidence of acute fracture or dislocation. All radiology interpretation(s) finalized by discharge Discharge Plan Discharge Patient Disposition: Home Clinical Impression: Left ankle sprain Qualifiers: Encounter type: initial encounter Involved ligament of ankle: unspecified ligament Qualified Code(s): S93.402A - Sprain of unspecified ligament of left ankle, initial encounter Condition: Stable Prescriptions: No Action (DME) ASO Brace See Rx Instructions .Route .MEDSUPPLY Qty: 1 0RF Rx Instructions: As directed naproxen 500 mg tablet 500 mg PO Q12H PRN (Reason: pain) Qty: 20 0RF benzonatate 200 mg capsule 200 mg PO TID PRN (Reason: cough) Qty: 30 0RF Discharge Orders: Discharge ED (Routine); Ordered 12/28/23 Ordered By: Dav Hansen Patient Instructions: Ankle Sprain (ED) Activity Restrictions/Additional Instructions: Please begin resting the left ankle. Elevate, apply ice, and wear compression to help with swelling. Begin taking Tylenol and ibuprofen for pain relief. Gentle range of motion exercises. Follow-up with your primary care provider and return with any new or worsening. Coding Level of Care Code ED Editor [employer]aper for Lauren Gonzalez
[2023-12-28] MEDS: ibuprofen 800 mg tablet PO (17:21)
== END 2023-12-28 19:34 | disposition home or self-care (01) ==
PROVIDERS: Emergency Provider Physician Assistant
DX: S93.402A Sprain of unspecified ligament of left ankle, initial encounter (principal); Z72.0 Tobacco use; X58.XXXA Exposure to other specified factors, initial encounter
CPT/HCPCS: 73610; 73630; 99283

== ENCOUNTER 2024-05-31 23:43 | Emergency (ER) | payer MEDICAID, SELFPAY ==
[2024-05-31 23:43] VITALS: BP 106/71; PULSE 75; RESP 18; TEMP 36.6; O2SAT 100; BMI 24.4
[2024-05-31 23:49] VITALS: BP 107/76; PULSE 80; O2SAT 97
--- NOTE | 2024-05-31 23:53 | XRR_ITS ---
PROCEDURE INFORMATION: Exam: XR Right Elbow Exam date and time: 06/01/2024 12:14 AM Age: 28 years old Clinical indication: Injury or trauma; Fall; Blunt trauma (contusions or hematomas); Elbow; Right TECHNIQUE: Imaging protocol: Radiologic exam of the right elbow. Views: 1 or 2 views. COMPARISON: No relevant prior studies available. FINDINGS: Bones/joints: Single lateral view of the elbow shows displaced oblique vertical fracture through the distal humerus extending from the distal shaft to the articular surface with posterior subluxation of the ulna with respect to the dominant proximal fracture fragment. Tiny additional fracture fragments at gap between dominant distal humerus fracture fragments that measures approximately 5.5 mm. Tiny fracture fragment also at the anterior elbow joint. Mineralization is normal. Joint effusion is present. Soft tissues: Unremarkable. XR/XR elbow RT min 3V* [id number] IMPRESSION: Right elbow fracture-subluxation with dominant oblique vertical intra-articular fracture of the distal humerus.
--- NOTE | 2024-05-31 23:53 | W.ED.FALL ---
HPI - Fall General: Chief Complaint: Fall Stated Complaint: Rt Arm Injury Time Seen by Provider: 05/31/24 23:45 Source: patient Mode of arrival: ambulatory Limitations: no limitations History of Present Illness: 28-year-old female states that she jumped over a fence fell directly on her right elbow just prior to arrival she has severe pain in the right elbow rates pain an 8 out of 10 much worse with movement denies any other injuries. Associated symptoms-after fall: Denies abdominal pain, chest pain, headache(s) or neck pain Related Data Previous Rx's ?Medication ?Instructions ?Recorded naproxen 500 mg tablet 500 mg PO Q12H PRN pain #20 tabs 06/08/23 ASO Brace #1 ea 07/03/23 benzonatate 200 mg capsule 200 mg PO TID PRN cough #30 caps 07/09/23 hydrocodone 5 mg-acetaminophen 325 1 tab PO Q6H PRN pain #14 tabs 06/01/24 mg tablet Allergies Allergy/AdvReac Type Severity Reaction Status Date / Time No Known Allergies Allergy Verified 05/31/24 23:49 Review of Systems Const: Denies: fever(s), chills, body aches or change in appetite ENMT: Denies: throat pain or dental pain Card: Denies: chest pain Resp: Denies: dyspnea GI: Denies: abdominal pain, nausea, vomiting or diarrhea Musc: Reports: extremity pain; Denies: neck pain or back pain Skin/Breast: Denies: rash Neuro: Denies: headache(s) PFSH ED PFSH: Medical History Anxiety with depression Surgical History Hx of dilation and curettage Hx of tubal ligation Family History Father Hypertension Other Cancer Denies family history of Diabetes Stroke Social History Smoking and tobacco/nicotine status: current every day tobacco/nicotine user (vape ) Second hand smoke exposure: No Alcohol intake: unknown Substance/Drug Use: unknown Adopted: No Caregiver/support person: No Lives independently: Yes Household members: children and friend(s) Housing: House Marital status: Legally Number of children: 3 Highest education level completed: 9th Grade service: No Current occupational status: employed Current occupation: [employer] Physical Exam Const: COMMON NORMALS: no acute distress, patient oriented x3 and healthy appearing HENMT: COMMON NORMALS: normocephalic and atraumatic HEAD & SCALP: normocephalic and atraumatic Eye: COMMON NORMALS: conjunctivae normal CONJUNCTIVA: Yes conjunctivae normal Neck/C-Spine: COMMON NORMALS: full ROM and supple Chest: COMMONS NORMALS: normal inspection of the chest Resp: COMMON NORMALS: normal respiratory effort Cardio: COMMON NORMALS: regular rate RATE: regular rate Extremity: NARRATIVE EXTREMITY EXAM: Tenderness noted to right elbow pain with range of motion Neuro: COMMON NORMALS: patient oriented x3, moves all extremities and no focal motor deficits Psych: COMMON NORMALS: mental status grossly normal, Normal thought process present and cooperative THOUGHT PROCESS: Normal thought process present Skin: COMMON NORMALS: no rashes or lesions noted and no wounds GENERAL SKIN EXAM: no rashes or lesions noted Procedures Orthopedic Joint Reduction Joint #1: Time Out Performed: Yes Side: right Joint Reduction Location: elbow Analgesia: procedural sedation Technique used: traction/counter-traction Post-reduction neuro exam: intact Post-reduction vascular: intact Post Reduction X-Ray Obtained: Yes Post Reduction X-Ray Results: reduced Splint Applied: Yes Patient Tolerated Procedure: well Procedural Sedation Indication: fracture/dislocation reduction ASA Class: I Time of Last PO Intake: 19:00 Preparation: surveillance monitor applied IV Propofol dose (mg): 60 Patient Tolerated Procedure: well Complications: none Course Vital Signs: Vital signs: Vital Signs Temperature 97.9 F 05/31/24 23:43 Pulse Rate 88 06/01/24 01:38 Respiratory Rate 17 06/01/24 01:26 Blood Pressure 130/95 06/01/24 01:38 Pulse Oximetry 99 06/01/24 01:38 Oxygen Delivery Me thod Nasal Cannula 06/01/24 00:20 Oxygen Flow Rate 4 06/01/24 00:20 MDM - Fall Medical Decision Making Patient presents here with a right elbow dislocation along with distal humerus fracture did reduce the elbow joint placed her in a splint and sling will get her follow-up with orthopedics patient's neurovascularly intact Medical Records I reviewed the patient's medical records. Lab Data Radiology Impressions Elbow X-Ray 06/01/24 01:01 IMPRESSION: Status post reduction with improved distal humerus fracture and elbow joint alignment. All radiology interpretation(s) finalized by discharge Discharge Plan Discharge Patient Disposition: Home Clinical Impression: Closed fracture dislocation of right elbow Qualifiers: Encounter type: initial encounter Qualified Code(s): S42.401A - Unspecified fracture of lower end of right humerus, initial encounter for closed fracture Condition: Stable Prescriptions: New hydrocodone-acetaminophen 5-325 mg tablet 1 tab PO Q6H PRN (Reason: pain) Qty: 14 0RF No Action (DME) ASO Brace See Rx Instructions .Route .MEDSUPPLY Qty: 1 0RF Rx Instructions: As directed naproxen 500 mg tablet 500 mg PO Q12H PRN (Reason: pain) Qty: 20 0RF benzonatate 200 mg capsule 200 mg PO TID PRN (Reason: cough) Qty: 30 0RF Discharge Orders: Discharge ED (Routine); Ordered 06/01/24 Ordered By: Betsy Mccullough Referrals: Nicolas Aldrideg DO [Physician] - 1-3 days Discharge Diet: Advance as tolerated Discharge Activity: Resume usual activity Patient Instructions: Elbow Dislocation (ED), Elbow Fracture (ED), Opioid Safety Print Language: Setswana Coding Level of Care Code ED Lathe Operator Contact Lens for Lauren Gonzalez
[2024-05-31] MEDS: HYDROcodone-acetaminophen 7.5-325 mg Tablet 1 TAB PO (23:56)
[2024-06-01 00:20] VITALS: PULSE 97; RESP 22; O2SAT 100
--- NOTE | 2024-06-01 01:01 | XRR_ITS ---
PROCEDURE INFORMATION: Exam: XR Right Elbow Exam date and time: 06/01/2024 1:03 AM Age: 28 years old Clinical indication: Injury or trauma; Fall; Blunt trauma (contusions or hematomas); Elbow; Right; Additional info: Post reduction TECHNIQUE: Imaging protocol: Radiologic exam of the right elbow. Views: 1 or 2 views. COMPARISON: CR (UP EXM, ) 06/01/2024 12:14 AM FINDINGS: Bones/joints: Single lateral view of the elbow shows improved alignment of intra-articular distal humerus fracture status post reduction. There is also improved ulnohumeral and radiocapitellar alignment on lateral view. Mineralization is normal. Joint effusion present. Soft tissues: Mild posterior elbow soft tissue swelling. XR/XR elbow RT 2V [id number] IMPRESSION: Status post reduction with improved distal humerus fracture and elbow joint alignment.
--- NOTE | 2024-06-01 01:10 | CTR_ITS ---
PROCEDURE INFORMATION: Exam: CT Right Upper Extremity Without Contrast, Elbow Exam date and time: 06/01/2024 1:18 AM Age: 28 years old Clinical indication: Injury or trauma; Fall; Blunt trauma (contusions or hematomas); Elbow; Right; Additional info: Fx/dislocation TECHNIQUE: Imaging protocol: Computed tomography of the right upper extremity without contrast. Exam focused on the elbow. Radiation optimization: All CT scans at this facility use at least one of these dose optimization techniques: automated exposure control; mA and/or kV adjustment per patient size (includes targeted exams where dose is matched to clinical indication); or iterative reconstruction. COMPARISON: CR (UP EXM, ) 06/01/2024 1:03 AM RADIATION DOSE METRICS: Total DLP (mGy-cm): 111.96 FINDINGS: Bones/joints: Fracture lateral epicondyle. Significant comminution and distraction of fracture fragments. This is best illustrated on image 49 of series 5 and image 20 of series 7. Fracture coronoid process. Soft tissues: Surrounding hematoma. CT/CT elbow RT wo con* [id number] IMPRESSION: Fracture of the lateral epicondyle with comminution and displacement. Fracture of the coronoid process.
[2024-06-01] MEDS: propofol 10 mg/mL SDV 20 mL 100 MG IVP (01:14)
[2024-06-01 01:26] VITALS: BP 130/95; PULSE 71; RESP 17; O2SAT 100
[2024-06-01 01:38] VITALS: BP 130/95; PULSE 88; O2SAT 99
[2024-06-01 02:04] VITALS: BP 127/92; PULSE 92; O2SAT 97
--- NOTE | 2024-06-01 08:41 | DCPLANNER ---
Message sent to Ortho for follow up-Medical Decision Making Patient presents here with a right elbow dislocation along with distal humerus fracture did reduce the elbow joint placed her in a splint and sling will get her follow-up with orthopedics patient's neurovascularly intact.
--- NOTE | 2024-06-02 19:24 | DCPLANNER ---
Referral sent to [facility] Legal Consultant - DR Lolis mcdonough. as requested by [facility] Orthopedic's department.
== END 2024-06-01 02:00 | disposition home or self-care (01) ==
PROVIDERS: Emergency Provider Emergency Medicine
DX: S42.401A Unspecified fracture of lower end of right humerus, initial encounter for closed fracture (principal); F17.290 Nicotine dependence, other tobacco product, uncomplicated; X58.XXXA Exposure to other specified factors, initial encounter
CPT/HCPCS: 24600; 73070; 73080; 73200; 99152; 99285; E0114; J2704; J9999